=== PATIENT | male | born 1955 | race African-American/Black ===

== ENCOUNTER 2023-07-24 12:21 | Emergency (ER) | payer MEDICARE, SELFPAY ==
[2023-07-24] VITALS (21 sets, daily range): BP systolic 145–189; BP diastolic 99–110; PULSE 65–90; TEMP 36.9; O2SAT 89–99; BMI 27.3
--- NOTE | 2023-07-24 12:46 | ECG_ITS ---
[facility] Test Date: 2023-07-24 Pat Name: ROSITA LOVE Department: Room: - Gender: Male Special Inspector: : 1955 Requested By: Order Number: [id number] Reading MD: MARK WEIR Measurements Intervals [place] Rate: 70 P: 54 [place]: 170 QRS: -8 QRSD: 90 T: -42 QT: 390 QTc: 411 Interpretive Statements 1100 Sinus rhythm [address] depression 4564 Twave abnormality, possible inferolateral ischemia 9150 abnormal ECG No previous ECG available for comparison Electronically Signed On 07-25-2023 6:55:45 EDT by MARK WEIR
[2023-07-24 12:55] LABS: Basophils Percent Auto 0.9 % (0.2-2.0); Eosinophils Absolute Auto 0.1 10^3/uL (0.0-0.7); Eosinophils Percent Auto 2.3 % (0.9-7.0); Hematocrit 45.9 % (42.0-54.0); Hemoglobin 15.2 g/dL (14.0-18.0); Immature Granulocytes Abs Auto 0.01 10^3/uL (0.00-0.03); Immature Granulocytes Pct Auto 0.2 % (0.0-0.5); Lymphocytes Absolute Auto 0.5 10^3/uL (1.2-3.8); Lymphocytes Percent Auto 12.5 % (20.5-60.0); Mean Corpuscular HGB Conc 33.1 g/dL (29.9-35.2); Mean Corpuscular Hemoglobin 30.9 pg (25.9-34.0); Mean Corpuscular Volume 93.3 fL (80.0-94.0); Mean Platelet Volume 9.6 fL (9.5-13.5); Monocytes Absolute Auto 0.4 10^3/uL (0.3-0.8); Monocytes Percent Auto 9.7 % (1.7-12.0); Neutrophils Absolute Auto 3.2 10^3/uL (1.4-6.5); Neutrophils Percent Auto 74.4 % (43.0-75.0); Platelet Count 240 10^3/uL (150-450); Red Blood Count 4.92 10^6/uL (4.70-6.10); Red Cell Distribution Width 13.3 % (11.0-15.0); White Blood Count 4.3 10^3/uL (4.0-11.0)
--- NOTE | 2023-07-24 12:57 | XR_ITS ---
[facility] [place] [id number] Patient Name: ROSITA LOVE MRN: [id number] date: 1955 Sex: M Assigned Patient Location: ER Current Patient Location: ER Accession/Order Number: [id number] Exam Date: 07/24/2023 12:50 Report Date: 07/24/2023 13:06 At the request of: IVETH MEZA Procedure: XR chest 1V EXAM: XR chest 1V HISTORY: shortness of breath COMPARISON: 03/08/1940 TECHNIQUE: AP portable FINDINGS: LUNGS: No significant pulmonary parenchymal abnormalities. VASCULATURE: No increased pulmonary vasculature. PLEURA: No pneumothorax, effusion, or pleural thickening. CARDIAC: No cardiomegaly or cardiac silhouette abnormality. MEDIASTINUM: No visible mass or adenopathy. BONES: No fracture or visible bone lesion. OTHER: Negative. XR/XR chest 1V IMPRESSION: No acute cardiopulmonary process Electronically authenticated by: CHUCKY SEPULVEDA Date: 07/24/2023 13:06
[2023-07-24 13:19] LABS: Chloride 103 mmol/L (98-107); Potassium 3.8 mmol/L (3.5-5.1); Sodium 139 mmol/L (136-145)
[2023-07-24 13:20] LABS: Alanine Aminotransferase 33 U/L (16-63); Albumin Globulin Ratio 0.9; Albumin Level 3.6 g/dL (3.4-5.0); Alkaline Phosphatase 69 U/L (46-116); Anion Gap 14.6; Aspartate Amino Transferase 28 U/L (15-37); BUN Creatinine Ratio 15.8; Bilirubin Total 0.5 mg/dL (0.2-1.0); Calcium 9.4 mg/dL (8.5-10.1); Carbon Dioxide 25.2 mmol/L (21.0-32.0); Estimated GFR (African America 56 (>=60); Estimated GFR (Non-African Ame 46 (>=60); Globulin 4.1 g/dL; Glucose 121 mg/dL (74-106); Total Protein 7.7 g/dL (6.4-8.2); Troponin I High Sensitivity 19.6 pg/mL (4.0-76.1)
--- NOTE | 2023-07-24 13:41 | ED_ITS ---
Documented by User: TARSHA Barker 07/24/23 16:05 HPI HPI - General Adult General Chief complaint: Shortness of Breath/Dyspnea Stated complaint: BILATERAL LEG SWELLING Time Seen by Provider: 07/24/23 13:20 Source: patient Mode of arrival: walk-in Limitations: no limitations History of Present Illness HPI narrative: 68-year-old male presents to the emergency department 3-week history of bilateral lower extremity swelling. States he has had swelling of his legs in the past, but usually relieved with positional changes. However, when symptoms began to worsen, he reached out to his provider was sent in for further evaluation. States he has been having some shortness of breath, mainly when he is laying supine at night. Denies any recent illness, chest pain, changes in diet. Patient denies any diuretic usage. Quality:?as above Severity:?moderate Timing:?3 weeks, worsening Context: Normal setting and activity? Modifying factors:?as above Associated symptoms: as above Related Data Home Medications ?Medication ?Instructions ?Recorded ?Confirmed allopurinol 100 mg tablet 100 mg PO DAILY 07/24/23 07/24/23 chlorthalidone 25 mg tablet mg 07/24/23 losartan 100 mg tablet 100 mg PO DAILY 07/24/23 07/24/23 metformin 500 mg tablet 500 mg PO DAILY 07/24/23 07/24/23 metoprolol succinate 50 mg 50 mg PO DAILY 07/24/23 07/24/23 tablet,extended release 24 hr nifedipine 90 mg tablet,extended 90 mg PO DAILY 07/24/23 07/24/23 release rosuvastatin 40 mg tablet 40 mg PO DAILY 07/24/23 07/24/23 Previous Rx's ?Medication ?Instructions ?Recorded furosemide 20 mg tablet (Lasix) 20 mg PO DAILY 5 days #5 tabs 07/24/23 Allergies Allergy/AdvReac Type Severity Reaction Status Date / Time No Known Drug Allergies Allergy Verified 07/24/23 12:33 Opioid HPI Opioid Management Most Recent Opioid Data: No Data to Display Review of Systems ROS Narrative CONST: Denies fever, chills HENT: Denies congestion, sore throat EYES: Denies eye redness, visual disturbance RESP: + shortness of breath. Denies cough CV: + peripheral edema. Denies chest pain, palpitations GI: Denies abd pain, nausea, vomiting : Denies dysuria, flank pain MS: Denies back pain, myalgias SKIN: Denies color change, rash NEURO: Denies numbness, weakness PSYCHIATRIC: Denies confusion, agitation [facility] Medical History (Updated 07/24/23 @ 15:53 by TARSHA Barker) Diabetes ?E11.9 - Type 2 diabetes mellitus without complications (ICD-10) Hypertension ?I10 - Essential (primary) hypertension (ICD-10) Exam Narrative Exam Narrative: Vital signs reviewed Nurses notes noted CONST: Nontoxic, well appearing, well nourished, in no distress.? No diaphoresis.?? HENT: normocephalic, atraumatic, moist mucous membrane, no abnormalities of the nose noted, hearing normal EYES: normal appearing conjunctiva, no apparent discharge bilat NECK: normal appearance CV: normal rate, regular rhythm, no murmur. 1+ edema BLE. Nontender RESP: normal effort, speaking in complete sentences. Lung sounds clear and equal bilat.? No wheezes, rales, rhonchi GI: soft, no distension, nontender MS: no edema, tenderness SKIN: no pallor NEURO: A&Ox 3, no focal findings PSYCH: normal mood, affect Constitutional Vital Signs, click to edit/add: Last Vital Signs Temp 98.4 F 07/24/23 12:30 Pulse 66 07/24/23 15:30 Resp 20 07/24/23 12:30 BP 177/99 H 07/24/23 15:30 Pulse Ox 96 07/24/23 15:30 O2 Del Method Room Air 07/24/23 12:30 Course Vital Signs Vital signs: Vital Signs Temperature 98.4 F 07/24/23 12:30 Pulse Rate 78 07/24/23 12:30 Respiratory Rate 20 07/24/23 12:30 Blood Pressure 145/101 H 07/24/23 12:30 Pulse Oximetry 98 07/24/23 12:30 Oxygen Delivery Method Room Air 07/24/23 12:30 Temperature 98.4 F 07/24/23 12:30 Pulse Rate 66 07/24/23 15:30 Respiratory Rate 20 07/24/23 12:30 Blood Pressure 177/99 H 07/24/23 15:30 Pulse Oximetry 96 07/24/23 15:30 Oxygen Delivery Method Room Air 07/24/23 12:30 Medical Decision Making MDM Narrative Medical decision making narrative: 68-year-old male presents to the emergency department with 3-week history of bilateral lower extremity. Patient states he has had ongoing lower extremity swelling, but normally is resolved with elevating his legs. Has had some s hortness of breath consistent with mild orthopnea. However, he has been able to sleep supine. Contacted his provider and was sent to the emergency department for further evaluation. He denies having any chest pain. Denies any increase in alcohol use, diet changes. Denies prior history of needing a diuretic. On arrival, afebrile, vital signs are stable. On exam, nontoxic, well-appearing patient in no distress. Patient displays 1+ edema to bilateral lower extremities without appreciable tenderness. He denies any pain. There is no discoloration. Distal pulses are intact. Heart regular rate and rhythm. Lung sounds clear and equal bilaterally. He is speaking in complete sentences. EKG reveals subtle changes when compared to EKG performed on 02/19/2023. No STEMI.f he does have T wave inversion in V4, V5 which were not present before. Otherwise, appears similar. Labs reveal no leukocytosis, anemia, thrombocytopenia, electrolyte imbalance. BUN 24, creatinine 1.52. We were able to obtain prior lab work performed 06/03/2023 showing a creatinine of 1.70. LFTs, magnesium unremarkable. BNP was only 153. High-sensitivity troponin was within normal limits. Chest x-ray imaging, per radiologist reveals no acute changes. Patient was a little hypertensive during ED course. He is on multiple medications. Recommend follow-up with his provider. Otherwise, with current clinical evaluation, patient can be discharged to home. Likely nonspecific peripheral edema GOSIA less likely based on current lab work compared to prior Pulmonary edema, CHF less likely based on chest x-ray, low BNP. Disposition ? The patient was discharged. Plan: Patient will be discharged to home. Condition at time of disposition: stable He was given prescription for 5-day supply of Lasix and instructed follow-up with his provider for repeat labs and further evaluation. Advised to follow up with primary provider. Advised to return for any worsening and/or development of new, concerning signs or symptoms PLEASE NOTE: Portions of the medical record may have been produced using electronic process controls technician and may contain errors with respect to translation of words which may not have been identified prior to finalization of the chart. Medical Records Medical records reviewed: Yes I reviewed the patient's medical records Lab Data Lab results reviewed: Yes I reviewed the patient's lab results Labs: Lab Results 07/24/23 Range/Units 12:45 WBC 4.3 (4.0-11.0) 10^3/uL RBC 4.92 (4.70-6.10) 10^6/uL Hgb 15.2 (14.0-18.0) g/dL Hct 45.9 (42.0-54.0) % MCV 93.3 (80.0-94.0) fL MCH 30.9 (25.9-34.0) pg MCHC 33.1 (29.9-35.2) g/dL RDW 13.3 (11.0-15.0) % Plt Count 240 (150-450) 10^3/uL MPV 9.6 (9.5-13.5) fL Neut % (Auto) 74.4 (43.0-75.0) % Lymph % (Auto) 12.5 L (20.5-60.0) % [place] % (Auto) 9.7 (1.7-12.0) % Eos % (Auto) 2.3 (0.9-7.0) % Baso % (Auto) 0.9 (0.2-2.0) % Neut # (Auto) 3.2 (1.4-6.5) 10^3/uL Lymph # (Auto) 0.5 L (1.2-3.8) 10^3/uL [place] # (Auto) 0.4 (0.3-0.8) 10^3/uL Eos # (Auto) 0.1 (0.0-0.7) 10^3/uL Baso # (Auto) 0.0 (0.0-0.1) 10^3/uL Abs Immat Gran (auto) 0.01 (0.00-0.03) 10^3/uL Imm/Tot Granulo (auto) 0.2 (0.0-0.5) % Sodium 139 (136-145) mmol/L Potassium 3.8 (3.5-5.1) mmol/L Chloride 103 (98-107) mmol/L Carbon Dioxide 25.2 (21.0-32.0) mmol/L Anion Gap 14.6 BUN 24.0 H (7.0-18.0) mg/dL Creatinine 1.52 H (0.70-1.30) mg/dL Est GFR ( Amer) 56 L (>=60) Est GFR (Non-Af Amer) 46 L (>=60) BUN/Creatinine Ratio 15.8 Glucose 121 H (74-106) mg/dL Calcium 9.4 (8.5-10.1) mg/dL Magnesium 2.2 (1.8-2.4) mg/dL Total Bilirubin 0.5 (0.2-1.0) mg/dL AST 28 (15-37) U/L ALT 33 (16-63) U/L Alkaline Phosphatase 69 (46-116) U/L Troponin I High Sens 19.6 (4.0-76.1) pg/mL NT-Pro-B Natriuret Pep 153.0 (<=900.0) pg/mL Total Protein 7.7 (6.4-8.2) g/dL Albumin 3.6 (3.4-5.0) g/dL Globulin 4.1 g/dL Albumin/Globulin Ratio 0.9 Imaging Data Chest x-ray: Radiologist's impression: ITS Impressions Chest X-Ray 07/24/23 12:57 IMPRESSION: No acute cardiopulmonary process Electronically authenticated by: CHUCKY SEPULVEDA Date: 07/24/2023 13:06 ECG Data Attestation: I personally reviewed and interpreted this ECG as follows: (EKG performed at 1242 hrs. shows sinus rhythm at [address] changes, inversion noted. Overall, similar appearance compared to 02/19/2023 except for some inversion noted in V4, V5 not present on previous. No STEMI. No ectopy.) Discharge Plan Discharge Stand Alone Forms: Portal Instructions Chief Complaint: Shortness of Breath/Dyspnea Clinical Impression: Essential hypertension, Peripheral edema Patient Disposition: Home, Self-Care Time of Disposition Decision: 15:52 Condition: Good Mode of Transportation: Private Vehicle Prescriptions / Home Meds: New furosemide [Lasix] 20 mg tablet 20 mg PO DAILY 5 Days Qty: 5 0RF No Action allopurinol 100 mg tablet 100 mg PO DAILY chlorthalidone 25 mg tablet losartan 100 mg tablet 100 mg PO DAILY metformin 500 mg tablet 500 mg PO DAILY metoprolol succinate 50 mg tablet extended release 24 hr 50 mg PO DAILY nifedipine 90 mg tablet extended release 90 mg PO DAILY rosuvastatin 40 mg tablet 40 mg PO DAILY Print Language: Austrian Instructions: Leg Edema (ED) Referrals: Rusty Fregoso [Primary Care Provider] - 1 week Discharge Date/Time: 07/24/23 16:06 Documented by User: Joaquin Link MD 07/24/23 21:20 HPI HPI - General Adult General Chief complaint: Shortness of Breath/Dyspnea Stated complaint: BILATERAL LEG SWELLING Time Seen by Provider: 07/24/23 13:20 Related Data Home Medications ?Medication ?Instructions ?Recorded ?Confirmed allopurinol 100 mg tablet 100 mg PO DAILY 07/24/23 07/24/23 chlorthalidone 25 mg tablet mg 07/24/23 losartan 100 mg tablet 100 mg PO DAILY 07/24/23 07/24/23 metformin 500 mg tablet 500 mg PO DAILY 07/24/23 07/24/23 metoprolol succinate 50 mg 50 mg PO DAILY 07/24/23 07/24/23 tablet,extended release 24 hr nifedipine 90 mg tablet,extended 90 mg PO DAILY 07/24/23 07/24/23 release rosuvastatin 40 mg tablet 40 mg PO DAILY 07/24/23 07/24/23 Previous Rx's ?Medication ?Instructions ?Recorded furosemide 20 mg tablet (Lasix) 20 mg PO DAILY 5 days #5 tabs 07/24/23 Allergies Allergy/AdvReac Type Severity Reaction Status Date / Time No Known Drug Allergies Allergy Verified 07/24/23 12:33 Opioid HPI Opioid Management Most Recent Opioid Data: No Data to Display [facility] Medical History (Updated 07/24/23 @ 15:53 by TARSHA Barker) Diabetes ?E11.9 - Type 2 diabetes mellitus without complications (ICD-10) Hypertension ?I10 - Essential (primary) hypertension (ICD-10) Exam Constitutional Vital Signs, click to edit/add: Last Vital Signs Temp 98.4 F 07/24/23 12:30 Pulse 66 07/24/23 15:30 Resp 20 07/24/23 12:30 BP 177/99 H 07/24/23 15:30 Pulse Ox 96 07/24/23 15:30 O2 Del Method Room Air 07/24/23 12:30 Course Vital Signs Vital signs: Vital Signs Temperature 98.4 F 07/24/23 12:30 Pulse Rate 78 07/24/23 12:30 Respiratory Rate 20 07/24/23 12:30 Blood Pressure 145/101 H 07/24/23 12:30 Pulse Oximetry 98 07/24/23 12:30 Oxygen Delivery Method Room Air 07/24/23 12:30 Temperature 98.4 F 07/24/23 12:30 Pulse Rate 66 07/24/23 15:30 Respiratory Rate 20 07/24/23 12:30 Blood Pressure 177/99 H 07/24/23 15:30 Pulse Oximetry 96 07/24/23 15:30 Oxygen Delivery Method Room Air 07/24/23 12:30 Medical Decision Making MDM Narrative Medical decision making narrative: 68-year-old male presents to the emergency department with 3-week history of bilateral lower extremity. Patient states he has had ongoing lower extremity swelling, but normally is resolved with elevating his legs. Has had some shortness of breath consistent with mild orthopnea. However, he has been able to sleep supine. Contacted his provider and was sent to the [facility] for further evaluation. He denies having any chest pain. Denies any increase in alcohol use, diet changes. Denies prior history of needing a diuretic. On arrival, afebrile, vital signs are stable. On exam, nontoxic, well-appearing patient in no distress. Patient displays 1+ edema to bilateral lower extremities without appreciable tenderness. He denies any pain. There is no discoloration. Distal pulses are intact. Heart regular rate and rhythm. Lung sounds clear and equal bilaterally. He is speaking in complete sentences. EKG reveals subtle changes when compared to EKG performed on 02/19/2023. No STEMI.f he does have T wave inversion in V4, V5 which were not present before. Otherwise, appears similar. Labs reveal no leukocytosis, anemia, thrombocytopenia, electrolyte imbalance. BUN 24, creatinine 1.52. We were able to obtain prior lab work performed 06/03/2023 showing a creatinine of 1.70. LFTs, magnesium unremarkable. BNP was only 153. High-sensitivity troponin was within normal limits. Chest x-ray imaging, per radiologist reveals no acute changes. Patient was a little hypertensive during ED course. He is on multiple medications. Recommend follow-up with his provider. Otherwise, with current clinical evaluation, patient can be discharged to home. Likely nonspecific peripheral edema GOSIA less likely based on current lab work compared to prior Pulmonary edema, CHF less likely based on chest x-ray, low BNP. Disposition ? The patient was discharged. Plan: Patient will be discharged to home. Condition at time of disposition: stable He was given prescription for 5-day supply of Lasix and instructed follow-up with his provider for repeat labs and further evaluation. Advised to follow up with primary provider. Advised to return for any worsen ing and/or development of new, concerning signs or symptoms PLEASE NOTE: Portions of the medical record may have been produced using electronic process controls technician and may contain errors with respect to translation of words which may not have been identified prior to finalization of the chart. I, Dr Link, have reviewed the above progress note and course of action in the ER; agree with the above. I have personally seen and evaluated this patient, gone over history and physical, and discussed disposition and treatment plan with the patient. Lab Data Labs: Lab Results 07/24/23 Range/Units 12:45 WBC 4.3 (4.0-11.0) 10^3/uL RBC 4.92 (4.70-6.10) 10^6/uL Hgb 15.2 (14.0-18.0) g/dL Hct 45.9 (42.0-54.0) % MCV 93.3 (80.0-94.0) fL MCH 30.9 (25.9-34.0) pg MCHC 33.1 (29.9-35.2) g/dL RDW 13.3 (11.0-15.0) % Plt Count 240 (150-450) 10^3/uL MPV 9.6 (9.5-13.5) fL Neut % (Auto) 74.4 (43.0-75.0) % Lymph % (Auto) 12.5 L (20.5-60.0) % [place] % (Auto) 9.7 (1.7-12.0) % Eos % (Auto) 2.3 (0.9-7.0) % Baso % (Auto) 0.9 (0.2-2.0) % Neut # (Auto) 3.2 (1.4-6.5) 10^3/uL Lymph # (Auto) 0.5 L (1.2-3.8) 10^3/uL [place] # (Auto) 0.4 (0.3-0.8) 10^3/uL Eos # (Auto) 0.1 (0.0-0.7) 10^3/uL Baso # (Auto) 0.0 (0.0-0.1) 10^3/uL Abs Immat Gran (auto) 0.01 (0.00-0.03) 10^3/uL Imm/Tot Granulo (auto) 0.2 (0.0-0.5) % Sodium 139 (136-145) mmol/L Potassium 3.8 (3.5-5.1) mmol/L Chloride 103 (98-107) mmol/L Carbon Dioxide 25.2 (21.0-32.0) mmol/L Anion Gap 14.6 BUN 24.0 H (7.0-18.0) mg/dL Creatinine 1.52 H (0.70-1.30) mg/dL Est GFR ( Amer) 56 L (>=60) Est GFR (Non-Af Amer) 46 L (>=60) BUN/Creatinine Ratio 15.8 Glucose 121 H (74-106) mg/dL Calcium 9.4 (8.5-10.1) mg/dL Magnesium 2.2 (1.8-2.4) mg/dL Total Bilirubin 0.5 (0.2-1.0) mg/dL AST 28 (15-37) U/L ALT 33 (16-63) U/L Alkaline Phosphatase 69 (46-116) U/L Troponin I High Sens 19.6 (4.0-76.1) pg/mL NT-Pro-B Natriuret Pep 153.0 (<=900.0) pg/mL Total Protein 7.7 (6.4-8.2) g/dL Albumin 3.6 (3.4-5.0) g/dL Globulin 4.1 g/dL Albumin/Globulin Ratio 0.9 Imaging Data Chest x-ray: Radiologist's impression: ITS Impressions Chest X-Ray 07/24/23 12:57 IMPRESSION: No acute cardiopulmonary process Electronically authenticated by: CHUCKY SEPULVEDA Date: 07/24/2023 13:06 Discharge Plan Discharge Stand Alone Forms: Portal Instructions Chief Complaint: Shortness of Breath/Dyspnea Clinical Impression: Essential hypertension, Peripheral edema Patient Disposition: Home, Self-Care Time of Disposition Decision: 15:52 Condition: Good Mode of Transportation: Private Vehicle Prescriptions / Home Meds: New furosemide [Lasix] 20 mg tablet 20 mg PO DAILY 5 Days Qty: 5 0RF No Action allopurinol 100 mg tablet 100 mg PO DAILY chlorthalidone 25 mg tablet losartan 100 mg tablet 100 mg PO DAILY metformin 500 mg tablet 500 mg PO DAILY metoprolol succinate 50 mg tablet extended release 24 hr 50 mg PO DAILY nifedipine 90 mg tablet extended release 90 mg PO DAILY rosuvastatin 40 mg tablet 40 mg PO DAILY Print Language: [place] Instructions: Leg Edema (ED) Referrals: Rusty Fregoso [Primary Care Provider] - 1 week Discharge Date/Time: 07/24/23 16:06
[2023-07-24 14:03] LABS: Magnesium 2.2 mg/dL (1.8-2.4)
[2023-07-24] MEDS: FUROSEMIDE 20 MG/2 ML VIAL IVP (15:36)
== END 2023-07-24 16:06 | disposition home or self-care (01) ==
PROVIDERS: Physician Assistant; Emergency Provider Emergency Medicine
DX: R60.9 Edema, unspecified (principal); I10 Essential (primary) hypertension; E11.9 Type 2 diabetes mellitus without complications; R06.02 Shortness of breath; Z79.899 Other long term (current) drug therapy; Z79.84 Long term (current) use of oral hypoglycemic drugs
CPT/HCPCS: 36415; 71045; 80053; 83735; 83880; 84484; 85025; 93005; 96374; 99285